=== PATIENT | female | born 1985 | race African-American/Black ===

== ENCOUNTER 2018-02-07 12:10 | Emergency (ER) | payer OTHER ==
[~2018-02-07] VITALS: Ht 160 cm; Wt 119.2 kg
[2018-02-07 13:32] LABS: BASOPHIL (%) 0.5 % (0-1); EOSINOPHIL (%) 3.3 % (0-5); EOSINOPHIL COUNT 0.3 K/uL (0-0.3); HEMATOCRIT 35.6 % (36.0-46.0); HEMOGLOBIN 11.4 G/DL (11.9-15.5); IMMATURE GRANULOCYTE (%) 0.4 % (0.0-0.7); LYMPHOCYTE (%) 37.2 % (15-42); MCH 23.6 PG (29.0-34.0); MCV 73.7 FL (83-99); MONOCYTE (%) 8.1 % (3-12); MONOCYTE COUNT 0.7 K/uL (0-0.8); NEUTROPHIL (%) 50.5 % (45-76); NEUTROPHIL COUNT 4.1 K/uL (1.8-6.4); PLATELET COUNT 341 K/uL (156-360); RBC DIS.WIDTH-CV 15.2 % (11.8-14.6); RBC DIS.WIDTH-SD 40.2 % (39-53); RED BLOOD COUNT 4.83 M/uL (3.80-5.20); WHITE BLOOD COUNT 8.2 K/uL (4.1-10.2)
[2018-02-07 13:33] LABS: CHLORIDE 104 mEq/L (99-109); POTASSIUM 3.3 mEq/L (3.7-5.4); SODIUM 138 mEq/L (136-147)
[2018-02-07 13:34] LABS: GLUCOSE 96 mg/dL (70-99)
[2018-02-07 13:38] LABS: CREATININE 0.9 mg/dL (0.6-1.3); GFR ESTIMATE (CALCULATED) > 59 mL/min/
[2018-02-07 13:39] LABS: UREA NITROGEN (BUN) 13 mg/dL (9-23)
[2018-02-07] MEDS ORDERED: HYDROCHLOROTH12.5 M3 PO (13:58)
[2018-02-07 14:05] VITALS: BP 177/107
== END 2018-02-07 14:06 | disposition home or self-care (01) ==
LOC: EME 12:10
PROVIDERS: Physician Assistant
DX: I10 Essential (primary) hypertension (principal); T50.2X6A Underdosing of carbonic-anhydrase inhibitors, benzothiadiazides and other diuretics, initial encounter; Z91.128 Patient's intentional underdosing of medication regimen for other reason
CPT/HCPCS: 80048; 85025; 99281; 99284